=== PATIENT | male | born 1950 | race Caucasian/White ===

== ENCOUNTER → 2023-12-24 09:00 | Outpatient (REF) | payer OTHER, SELFPAY ==
--- NOTE | 2023-12-08 11:15 | CM ---
Patient is scheduled for an elective L TKR on 11/16/23- he is a same day patient. Spoke with patient and prior to surgery. Introduced role of Orthopedic Navigator. Patient reports that he lives with his in a spilt level home. There are five
(3-2) steps to enter and then either six up or six down. He currently functions independently. He has a raised toilet seat and cpap. He has never had VN services. PCP is Shawn Dyson.
Discussed orthopedic program and post surgical plans. Reviewed that he will have VN services initially (medicare.gov website and ratings reviewed) and will then start outpatient PT. Patient selects [facility]N (face sheet faxed to [facility]N to facilitate
confirmation of benefits) for his home care needs and will go to [facility] for outpatient PT.
Patient is in agreement with plan and states that his will be home with him.
Patient will complete online education.
Plan: Orthopedic Navigator will remain available to assist with the care of patient and will reassess discharge needs after surgery.
[2023-12-24 09:20] VITALS: BMI 35.4
[2023-12-24 10:20] LABS: Hematocrit 33.4 % (39.0-52.0); Hemoglobin 10.7 g/dL (13.0-18.0); Mean Corpuscular Hgb 30.1 pg (27.0-31.0); Mean Corpuscular Volume 94.1 fL (80.0-94.0); Mean Platelet Volume 9.9 fL (7.4-10.4); Platelet Count 314 10^3/uL (130-400); Red Blood Cell Count 3.55 10^6/uL (4.70-6.10); Red Cell Dist. Width 12.9 % (11.5-14.5); White Blood Cell Count 5.5 10^3/uL (4.8-10.8)
[2023-12-24 10:59] LABS: ALT (SGPT) 19 U/L (0-50); AST (SGOT) 20 U/L (17-59); Albumin 4.1 g/dl (3.5-5.0); Alkaline Phosphatase 84 U/L (38-126); Blood Urea Nitrogen 22 mg/dl (9-20); Calcium 9.3 mg/dl (8.4-10.2); Carbon Dioxide 24 mmol/L (22-30); Chloride 103 mmol/L (98-107); Estimated Creatinine Clearance 90 ml/min; Glucose 87 mg/dl (70-99); Potassium 4.9 mmol/L (3.5-5.1); Sodium 137 mmol/L (135-145); Total Bilirubin 0.5 mg/dl (0.2-1.3); Total Protein 6.9 g/dl (6.3-8.2); eGFR > 60.00
[2023-12-24 12:31] LABS: Glycohemoglobin (HgbA1c) 5.4 % (4.0-5.6)
[2023-12-24 15:05] VITALS: BMI 35.4
== END ==
LOC: SDSPAT 09:00
PROVIDERS: ATTENDING PHYSICIAN Specialist; FAMILY PHYSICIAN Physician Assistant; OTHER PHYSICIAN Internal Medicine Cardiovascular Disease; OTHER PHYSICIAN Physician Assistant
DX: Z01.818 Encounter for other preprocedural examination (principal); M17.12 Unilateral primary osteoarthritis, left knee
CPT/HCPCS: 36415; 80053; 83036; 85027; 86850; 86900; 86901; 87070

== ENCOUNTER 2024-03-19 15:37 | Emergency (ER) | payer OTHER, SELFPAY ==
[2024-03-19 15:45] VITALS: BP 151/84
--- NOTE | 2024-03-19 17:43 | ED.GENMED ---
History of Present Illness
General
Chief Complaint: Abdominal Symptoms
Source: patient
Exam Limitations: none
Time Seen by Provider: 03/19/24 17:28
Nursing documentation reviewed up to this point in time: agreed with
Travel History
Have you had any contact with someone who has COVID-19?: No
Do you have any symptoms of coronavirus? Fever > 100 degrees, chills, cough, shortness of breath, sore throat, loss of taste or smell, muscle aches, or headache?: No
History of Present Illness
History of Present Illness:
74-year-old male presents with constipation. Last good BM was 9 days ago, had a small one yesterday, feels pressure in rectal area like there is stool there. He took Miralax at 7 a and 11 a, Fleets enema with no success. Has 'a little discomfort'
lower abdomen. Denies black or bloody stools.
History of HTN, Hereditary Hemorrhagic Telangiectasia (HHT), iron deficiency anemia needing occasional iron infusions, having been on p.o. iron off and on, states he had been on iron for a month in February, then told to stop for a week and 10 days ago
had a lower GI camera study at [facility] showing nothing worrisome. Had colonoscopy and upper endoscopy 06/2023, both 'clear.'
Past History
Past History
ED Past Medical History: Arrthythmia, HTN and Other (Current nosebleeds every day from his syndrome); Negative IDDM
ED Past Surgical History: Orthopedic
Social History
Tobacco: Former smoker
Alcohol: Daily (Beer 4-5)
Personal:
Living: with family
Employment: Employed
Family History
Family History: Negative Diabetes, Hypertension or CAD
Review of Systems
Review of Systems
Allergies reviewed?: Yes
All Other Systems: ROS reviewed and negative except as documented in HPI and ROS
Constitutional: Denies fever
Respiratory: Denies trouble breathing
Cardiac: Denies chest pain
ABD/GI: Reports abdominal pain, constipated and bloody stools (small amounts of red blood when wiping and after self administered enema at home); Denies nausea, vomiting or black stools
: Denies dysuria or difficulty voiding
Musculoskeletal: Reports no symptoms
Skin: Reports no symptoms
Neurological: Reports no symptoms
Phy Exam
Physical Exam
Physical Exam:
GENERAL: No acute distress. A&Ox3.
CONSTITUTIONAL: Afebrile.
RESPIRATORY: Regular respirations, nonlabored, lungs clear.
CARDIOVASCULAR: Regular rate and rhythm, no murmurs, no rubs.
GI: Rotund, semi firm, nontender, normal BS
Rectal: Semi firm stool in proximal rectal vault, brown, heme positive.
MUSCULOSKELETAL: Moves with ease. Well perfused.
SKIN: Warm, dry, pink
PSYCH: Normal mood and affect. Well kept, interactive and appropriate
NEUROLOGIC: Awake, alert and oriented. No focal neurological deficits
Course
Orders/Labs/Results
Orders:
Orders
03/19/24 15:47
CR Abdomen - 1 View Urgent
Comment:
Reason For Exam: constipation
03/19/24 17:41
Enema- Treatment ONCE
Type: Tap Water
03/19/24 18:18
Complete Blood Count/With Diff Urgent
Comprehensive Metabolic Panel Urgent
03/19/24 19:45
Enema- Treatment ONCE
Type: Milk of Molasses
Abnormal Lab Results
03/19/24
18:18
RBC 3.45 L 10^6/uL
(4.70-6.10)
Hgb 10.4 L g/dL
(13.0-18.0)
Hct 31.3 L %
(39.0-52.0)
RDW 14.6 H %
(11.5-14.5)
Absolute Neuts (auto) 7.5 H 10^3/uL
(1.4-6.5)
Absolute Lymphs (auto) 1.0 L 10^3/uL
(1.2-3.4)
Absolute Monos (auto) 1.0 H 10^3/uL
(0.1-0.6)
Neutrophils % 78.4 H %
(42.2-75.2)
Lymphocytes % 10.3 L %
(20.5-51.1)
Monocytes % 9.9 H %
(1.7-9.3)
Sodium 133 L mmol/L
(135-145)
Glucose 107 H mg/dl
(70-99)
03/19/24 18:18
03/19/24 18:18
Vital Signs
Initial and Last Documented VS:
Initial Vital Signs
Temp Pulse Resp BP Pulse Ox
98.4 F 73 20 151/84 98
03/19/24 15:45 03/19/24 15:45 03/19/24 15:45 03/19/24 15:45 03/19/24 15:45
Last Documented Vital Signs
Temp Pulse Resp BP Pulse Ox
98.4 F 74 18 142/70 98
03/19/24 15:45 03/19/24 20:40 03/19/24 20:40 03/19/24 20:40 03/19/24 20:40
MDM/Problems Addressed
Differential Diagnosis Includes:
constipation, hemorrhoid, abrasion anal area, fissure
MDM/Problems Addressed:
74-year-old male presents with constipation. Last good BM was 9 days ago, had a small one yesterday, feels pressure in rectal area like there is stool there. He took Miralax at 7 a and 11 a, Fleets enema with no success. Has 'a little discomfort'
lower abdomen. Denies black or bloody stools.
History of HTN, Hereditary Hemorrhagic Telangiectasia (HHT), iron deficiency anemia needing occasional iron infusions, having been on p.o. iron off and on, states he had been on iron for a month in February, then told to stop for a week and 10 days ago
had a lower GI camera study at [facility] showing nothing worrisome. Had colonoscopy and upper endoscopy 06/2023, both 'clear.'
Abdominal x-ray reviews large amount of stool in the rectum. The study is otherwise unremarkable
.
6:30 PM CBC with no clinically significant abnormality. His hemoglobin is 10.4 which is his baseline.
Rectal: deep proximally in rectal vault, stool brown, heme positive most likely from pt states, irritation from self administration of enema at home.
CMP : No clinically significant abnormality
After tapwater enema, very little stool return
8:15 PM
Milk Milk molasses enema given by this examiner
Large stool return, pt feeling much better. Small amount blood perirectally, he states he used a hard plastic enema tip and thinks he scraped the area, it does feel stingy and irritated.
Stable for discharge
*Critical Care Note
Total Time (30-74mins, 75-104mins- exclusive of procedures): Not Applicable
ED Attending Note
-
Portions of this chart may have been created with voice recognition software.� Occasional wrong word or��sound alike� substitutions may have occurred due to the inherent limitations of voice recognition software.
Discharge Plan
Departure
Patient Disposition: Home (Routine Discharge)
Date of Disposition: 03/19/24
Time of Disposition: 20:31
Patient with high blood pressure during this ER visit?: No
Condition: Good
Discharge Problem:
Acute constipation
Instructions: Constipation, Adult (DC)
Prescriptions:
No Action
ferrous sulfate [iron] 325 mg (65 mg iron) Tablet
325 mg PO Q48H
metoprolol succinate 25 MG tablet extended release 24 hr
25 mg PO DAILY
sildenafil 50 mg Tablet
50 mg PO DAILY PRN (Reason: ED)
acetaminophen 500 mg Tablet
1,000 mg PO Q6H PRN (Reason: PAIN)
olmesartan 20 mg Tablet
20 mg PO DAILY
aspirin 81 mg Capsule
81 mg PO DAILY
oxycodone 5 mg tablet
5 - 10 mg PO Q6H PRN (Reason: moderate-severe pain) Qty: 30 0RF
Rx Instructions:
1 tab for moderate pain, 2 if severe.
Dx total joint
ondansetron HCl 4 mg tablet
4 mg PO Q6H PRN (Reason: nausea and vomiting) Qty: 30 0RF
mupirocin 2 % ointment
1 applic intranasal BID Qty: 1 0RF
dexamethasone 4 mg tablet
4 mg PO BID Qty: 7 0RF
Rx Instructions:
Start night of discharge and continue twice a day for 3 days post-surgery.
Take with food.
Referrals:
Shawn Dyson PA-C [Family Provider] - As needed
Activity Restrictions/Additional Instructions:
As we discussed, return here over the weekend for worse bleeding from rectum
Otherwise, see your doctor if the bleeding is not completely gone in 5 days.
Interventions
Interventions:
*Risk Screen - Suicide Last Done: 03/19/24 15:45
*General Assessment Last Done: 03/19/24 15:45
*Neglect/Abuse Screening Last Done: 03/19/24 15:45
ED- Fall Risk Assessment Last Done: 03/19/24 18:09
*ED COVID-19 Vaccine History Last Done: 03/19/24 18:09
*Nursing Disposition Last Done: 03/19/24 20:43
OV-Gnekmw-Gotydjrdjs Assessment Last Done: 03/19/24 18:09
Discharge Date and Time
Discharge Date/Time: 03/19/24 20:43
Print Language: NIGERIAN
[2024-03-19 18:38] LABS: % Basophils 0.4 % (0-2); % Eosinophils 0.7 % (0-6); % Immature Granulocytes 0.3 % (0-0.5); % Lymphocytes 10.3 % (20.5-51.1); % Monocytes 9.9 % (1.7-9.3); % Neutrophils 78.4 % (42.2-75.2); Absolute Eosinophils 0.1 10^3/uL (0-0.7); Absolute Neutrophils 7.5 10^3/uL (1.4-6.5); Hematocrit 31.3 % (39.0-52.0); Hemoglobin 10.4 g/dL (13.0-18.0); Mean Corp Hgb Conc. 33.2 g/dL (33.0-37.0); Mean Corpuscular Hgb 30.1 pg (27.0-31.0); Mean Corpuscular Volume 90.7 fL (80.0-94.0); Mean Platelet Volume 9.2 fL (7.4-10.4); Nucleated Red Blood Cells % 0 % (-); Platelet Count 310 10^3/uL (130-400); Red Blood Cell Count 3.45 10^6/uL (4.70-6.10); Red Cell Dist. Width 14.6 % (11.5-14.5); White Blood Cell Count 9.6 10^3/uL (4.8-10.8)
[2024-03-19 19:41] LABS: ALT (SGPT) 16 U/L (0-50); AST (SGOT) 21 U/L (17-59); Albumin 4.1 g/dl (3.5-5.0); Alkaline Phosphatase 81 U/L (38-126); Blood Urea Nitrogen 18 mg/dl (9-20); Calcium 9.4 mg/dl (8.4-10.2); Carbon Dioxide 22 mmol/L (22-30); Chloride 103 mmol/L (98-107); Glucose 107 mg/dl (70-99); Potassium 4.4 mmol/L (3.5-5.1); Sodium 133 mmol/L (135-145); Total Bilirubin 0.8 mg/dl (0.2-1.3); Total Protein 6.8 g/dl (6.3-8.2); eGFR > 60.00
[2024-03-19 20:40] VITALS: BP 142/70
== END 2024-03-19 20:43 | disposition home or self-care (01) ==
LOC: EMR 15:37
PROVIDERS: Registered Nurse; EMERGENCY PHYSICIAN Emergency Medicine; FAMILY PHYSICIAN Physician Assistant
DX: K59.09 Other constipation (principal); K62.5 Hemorrhage of anus and rectum; R10.30 Lower abdominal pain, unspecified; I10 Essential (primary) hypertension; I48.91 Unspecified atrial fibrillation; G47.30 Sleep apnea, unspecified; M19.90 Unspecified osteoarthritis, unspecified site; D50.9 Iron deficiency anemia, unspecified; I78.0 Hereditary hemorrhagic telangiectasia; Z87.891 Personal history of nicotine dependence; Z79.82 Long term (current) use of aspirin; Z88.5 Allergy status to narcotic agent; Z88.8 Allergy status to other drugs, medicaments and biological substances
CPT/HCPCS: 99283; 74018; 80053; 85025

== ENCOUNTER → 2024-04-27 08:16 | Outpatient (REF) | payer OTHER, SELFPAY | LOC: RAD 08:16 | PROVIDERS: FAMILY PHYSICIAN Family Medicine; OTHER PHYSICIAN Physician Assistant | DX: I78.0 Hereditary hemorrhagic telangiectasia (principal) | CPT/HCPCS: 76700 ==

== ENCOUNTER → 2024-09-22 11:12 | Outpatient (REF) | payer OTHER, SELFPAY | LOC: RAD 11:12 | PROVIDERS: FAMILY PHYSICIAN Family Medicine | DX: I78.0 Hereditary hemorrhagic telangiectasia (principal) | CPT/HCPCS: 71275; Q9967 ==

== ENCOUNTER 2024-10-29 15:15 | Inpatient (IN) | payer OTHER, SELFPAY ==
[2024-10-29] VITALS (12 sets, daily range): BP systolic 93–157; BP diastolic 54–89; BMI 31.8
[2024-10-29 11:39] LABS: % Basophils 0.8 % (0-2); % Eosinophils 1.6 % (0-6); % Immature Granulocytes 0.5 % (0-0.5); % Lymphocytes 14.4 % (20.5-51.1); % Monocytes 10.3 % (1.7-9.3); % Neutrophils 72.4 % (42.2-75.2); Absolute Basophils 0.1 10^3/uL (0-0.2); Absolute Eosinophils 0.1 10^3/uL (0-0.7); Absolute Lymphocytes 0.9 10^3/uL (1.2-3.4); Absolute Monocytes 0.7 10^3/uL (0.1-0.6); Absolute Neutrophils 4.6 10^3/uL (1.4-6.5); Hematocrit 36.2 % (39.0-52.0); Hemoglobin 11.6 g/dL (13.0-18.0); Mean Corpuscular Hgb 29.1 pg (27.0-31.0); Mean Corpuscular Volume 90.7 fL (80.0-94.0); Mean Platelet Volume 9.5 fL (7.4-10.4); Nucleated Red Blood Cells % 0 % (-); Platelet Count 303 10^3/uL (130-400); Red Blood Cell Count 3.99 10^6/uL (4.70-6.10); Red Cell Dist. Width 14.2 % (11.5-14.5); White Blood Cell Count 6.3 10^3/uL (4.8-10.8)
[2024-10-29 11:59] LABS: ALT (SGPT) 18 U/L (0-50); AST (SGOT) 20 U/L (17-59); Albumin 4.6 g/dl (3.5-5.0); Alkaline Phosphatase 63 U/L (38-126); Blood Urea Nitrogen 36 mg/dl (9-20); Calcium 9.8 mg/dl (8.4-10.2); Carbon Dioxide 22 mmol/L (22-30); Chloride 104 mmol/L (98-107); Glucose 93 mg/dl (70-99); Potassium 6.6 mmol/L (3.5-5.1); Sodium 134 mmol/L (135-145); Total Bilirubin 0.5 mg/dl (0.2-1.3); Total Protein 7.5 g/dl (6.3-8.2); eGFR 39.01
--- NOTE | 2024-10-29 12:31 | ED.GENMED ---
History of Present Illness
General
Chief Complaint: Visual Problem
Source: patient and family
Exam Limitations: none
Time Seen by Provider: 10/29/24 12:23
Nursing documentation reviewed up to this point in time: agreed with
History of Present Illness
History of Present Illness:
Patient is a 74-year-old male who presents today for evaluation. 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 He denies any associated chest pain shortness
of breath.
He does report he recently started Ozempic. His first injection was 1 week ago his second injection was yesterday. He does have a history of hypertension A-fib. He had an episode of A-fib October 14 but converted on his own and did not require
cardioversion. He is not on blood thinners. He denies any chest pain shortness of breath. Denies any recent illness fever chills
Past History
Past History
ED Past Medical History: Arrthythmia, HTN and Other (Current nosebleeds every day from his syndrome); Negative IDDM
ED Past Surgical History: Orthopedic
Social History
Tobacco: Former smoker
Alcohol: Daily (Beer 4-5)
Personal:
Living: with family
Employment: Employed
Family History
Family History: Negative Diabetes, Hypertension or CAD
Review of Systems
Review of Systems
Allergies reviewed?: Yes
All Other Systems: ROS reviewed and negative except as documented in HPI and ROS
Constitutional: Reports no symptoms; Denies fever, fatigue or chills
EENT: Reports other (felt mild blurred vision )
Respiratory: Reports no symptoms
Cardiac: Reports no symptoms
ABD/GI: Reports no symptoms
Musculoskeletal: Reports no symptoms
Skin: Reports no symptoms
Neurological: Reports other (felt lightheaded this am )
Psychiatric: Reports no symptoms
Phy Exam
General Physical Exam
General Presentation: no apparent distress
General age: appears stated age
General Skin: warm and dry
General Habitus: normal
General Mental: alert
General Hydration: appears well hydrated
Cardiovascular Exam
Cardiovascular Exam: regular rate/rhythm, no murmur and normal peripheral pulses
Pulmonary Exam
Pulmonary Exam: lungs clear and no respiratory distress
Neurological Exam
Neurological Exam: alert and oriented x3
Musculoskeletal Exam
Musculoskeletal Exam: full ROM
Skin Exam
Skin Exam: normal color and warm/dry
Psychiatric Exam
Psychiatric Exam: normal mood/affect
Course
Orders/Labs/Results
Orders:
Orders
10/29/24 11:19
Electrocardiogram (*1) Urgent
Reason for Study: Chest Pain
EKG- Treatment ONCE
10/29/24 11:30
Complete Blood Count/With Diff Urgent
Comprehensive Metabolic Panel Urgent
10/29/24 12:45
0.9% Sodium Chloride 1000 ml [Nss] 1,000 ml IV BOLUS
Calcium Gluconate 1,000 mg IV NOW STA
Dextrose 50%-Water [Dextrose 50% Syringe] 12.5 grams IV [id number] PRN
Dextrose 50%-Water [Dextrose 50% Syringe] 25 grams IV NOW STA
Insulin Human Regular [Novolin R] 5 units IV NOW STA
Sodium Zirconium Cyclosilicate [Lokelma] 10 gram PO NOW STA
10/29/24 12:46
Bedside Glucose PRE IV Insulin- HyperK+ NOW
10/29/24 14:16
Bedside Glucose POST IV Insulin- HyperK+ Q1HX2,Q2HX2
10/29/24 15:16
Potassium Urgent
Comment: draw 2 hours after regular insulin IV administration
Abnormal Lab Results
10/29/24
11:30
RBC 3.99 L 10^6/uL
(4.70-6.10)
Hgb 11.6 L g/dL
(13.0-18.0)
Hct 36.2 L %
(39.0-52.0)
MCHC 32.0 L g/dL
(33.0-37.0)
Absolute Lymphs (auto) 0.9 L 10^3/uL
(1.2-3.4)
Absolute Monos (auto) 0.7 H 10^3/uL
(0.1-0.6)
Lymphocytes % 14.4 L %
(20.5-51.1)
Monocytes % 10.3 H %
(1.7-9.3)
Sodium 134 L mmol/L
(135-145)
Potassium 6.6 H* mmol/L
(3.5-5.1)
BUN 36 H mg/dl
(9-20)
Creatinine 1.8 H mg/dL
(0.7-1.3)
10/29/24 11:30
Vital Signs
Initial and Last Documented VS:
Initial Vital Signs
Temp Pulse Resp BP Pulse Ox
97.8 F 90 18 93/54 100
10/29/24 11:10 10/29/24 11:10 10/29/24 11:10 10/29/24 11:10 10/29/24 11:10
Last Documented Vital Signs
Temp Pulse Resp BP Pulse Ox
97.3 F 67 12 115/63 99
10/29/24 11:15 10/29/24 12:27 10/29/24 12:27 10/29/24 12:27 10/29/24 11:15
Communications Controller consulted with Physician
Communications Controller consulted with physician?: Yes
Name of Physician Consulted: tessa
MDM/Problems Addressed
MDM/Problems Addressed:
Patient is a 74-year-old male who was working and felt very lightheaded developed some blurred vision and presented to the ER. Patient starting Ozempic 1 week ago his last dose was yesterday which was a second dose. He presented to the ER awake
alert no acute distress however labs are not normal. Patient has no prior history of renal disease however his BUN was elevated at 36 with a creatinine of 1.8 his potassium was elevated 6.6 with mild peaked T waves. discussed with Dr Jules
hyperkalemic meds ordered w/ nss.
will adm to hospitalist service.
*Pulse Oximetry
Patient hypoxic: no
*EKG
Interpreted by ED Provider?: Yes
Heart Rate: 72
Rate: normal
Rhythm: sinus
Ischemia: no ischemia
*Critical Care Note
Total Time (30-74mins, 75-104mins- exclusive of procedures): Not Applicable
ED Attending Note
-
Portions of this chart may have been created with voice recognition software.� Occasional wrong word or��sound alike� substitutions may have occurred due to the inherent limitations of voice recognition software.
Discharge Plan
Departure
Patient Disposition: Admit
Date of Disposition: 10/29/24
Time of Disposition: 14:00
Admit to: Telemetry
Admit to doctor: hospitalist
Presentation/result/management discussed w/ accepting MD/DO: Hospitalist
Patient with high blood pressure during this ER visit?: No
Condition: Fair
Covid-19: Not Applicable
Discharge Problem:
Acute hyperkalemia, Acute renal insufficiency
Prescriptions:
No Action
ferrous sulfate [iron] 325 mg (65 mg iron) Tablet
325 mg PO DAILY
metoprolol succinate 25 MG tablet extended release 24 hr
25 mg PO DAILY
acetaminophen 500 mg Tablet
1,000 mg PO Q6HPRN PRN (Reason: MILD PAIN)
olmesartan 20 mg Tablet
20 mg PO DAILY
Ozempic 0.25 mg or 0.5 mg (2 mg/3 mL) Pen Injector
0.25 mg SC TH
Rx Instructions:
for 4 weeks
aspirin 81 mg Tablet,Delayed Release (Dr/Ec)
81 mg PO DAILY
Referrals:
Meme Mcleod MD, Resident [Family Provider] -
Interventions
Interventions:
*Risk Screen - Suicide Last Done: 10/29/24 11:15
*General Assessment Last Done: 10/29/24 12:32
*Neglect/Abuse Screening Last Done: 10/29/24 11:15
ED- Neurological Assessment Last Done: 10/29/24 12:34
ED-EENT Assessment Last Done: 10/29/24 14:05
Discharge Date and Time
Print Language: CROATIAN
[2024-10-29] MEDS: LOKELMA 10 GRAM PO ×2 (13:30→17:35)
[2024-10-29] MEDS: CALCIUM GLUCONATE 1000 MG IV (13:32)
[2024-10-29] MEDS: DEXTROSE 50% SYRINGE 25 GRAMS IV (13:36)
[2024-10-29] MEDS: NOVOLIN R 5 UNITS IV (13:38)
--- NOTE | 2024-10-29 14:27 | HPS.HSE ---
Family Physician
-
Family Physician: Meme Puri MD, Residen
Chief Complaint
-
lightheadedness
History of Present Illness
Mr. Gerry Rivera is a 74 yo man with hx atrial fibrillation not on blood thinners, essential HTN, recent initiation of Ozempic (first injection 1 week ago and 2nd yesterday) presents to the ER with episode of lightheadedness, blurry vision and
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
Patient states he was standing up for a while then felt very dizzy with blurry vision, he sat down with improvement in symptoms. He did not pass out. He then came to the hospital. He states he has been trying to stay hydrated but per he does
not drink much and did not drink a lot this morning. Over past 2 weeks since starting Ozempic he has lost 15 pounds. He has also changed his diet, eating less salt and noticed decreased LE swelling. Per , he was using a salt substitute which
is high in potassium.
He denies fevers/chills. No chest pain. He has hx chronic nose bleeds. He has hx afib s/p ablation years ago; went into afib earlier this month but self converted out of it and has stopped Eliquis. No abdominal pain. No
nausea/vomiting/diarrhea.
He was drinking alcohol daily up until 2 weeks ago when slowed down and now has only had about 2 drinks/week.
Medical History
Past Medical History
Past Medical History: Reports Arrhythmia (atrial fibrillation ) and HTN
Past Surgical History: Reports Orthopedic
Social History
Tobacco: Non-smoker
Alcohol: Occasional (was daily 2 weeks ago )
Family History
Family History: Not pertinent
Allergies / Home Medications
Allergies reflects when Allergies were last updated in [facility].
Home Medications with original date entered in [facility]
Allergy/Medication List:
Allergies
Allergy/AdvReac Type Severity Reaction Status Date / Time
lorazepam [From Ativan] Allergy confused Verified 10/29/24 11:14
morphine [Morphine] Allergy nausea, Verified 10/29/24 11:14
bowel
incontinence
Home Medications
ferrous sulfate 325 mg (65 mg iron) tablet (iron) 325 mg PO DAILY Supplement 10/18/22
metoprolol succinate 25 mg tablet,extended release 24 hr 25 mg PO DAILY Blood Pressure 10/18/22
acetaminophen 500 mg tablet 1,000 mg PO Q6HPRN PRN MILD PAIN 12/19/23
olmesartan 20 mg tablet 20 mg PO DAILY Blood Pressure 12/19/23
aspirin 81 mg tablet,delayed release 81 mg PO DAILY Blood Clot Prevention/Tx 10/29/24
semaglutide 0.25 mg or 0.5 mg (2 mg/3 mL) subcutaneous pen injector (Ozempic) 0.25 mg SC TH WEIGHT LOSS 10/29/24
Review of Systems
-
History Source: Patient
A 12 point ROS was completed and negative except as noted: Yes
Physical Exam
Vital Signs
Vital Signs
Temp Pulse Resp BP Pulse Ox
97.3 F 67 12 115/63 99
10/29/24 11:15 10/29/24 12:27 10/29/24 12:27 10/29/24 12:27 10/29/24 11:15
Physical Exam
General: No Apparent Distress
HEENT: PERRLA
Respiratory: Clear; No Wheezes
Cardiac: S1/S2 and Regular Rhythm
GI: Soft and Non Tender
Musculoskeletal: No Edema
Skin: Warm and Dry; No Rash
Neuro: AO x 3
Psych: Calm
Laboratory Results
-
10/29/24 11:30
Laboratory Results
Total Bilirubin 0.5 mg/dl (0.2-1.3) 10/29/24 11:30
AST 20 U/L (17-59) 10/29/24 11:30
ALT 18 U/L (0-50) 10/29/24 11:30
Alkaline Phosphatase 63 U/L (38-126) 10/29/24 11:30
Data Reviewed
-
Diagnostic Radiology: Report Reviewed by me
Lab Data: Labs Reviewed by me
Impression/Plan
-
Mr. Gerry Rivera is a 74 yo man with hx atrial fibrillation not on blood thinners, essential HTN, recent initiation of Ozempic (first injection 1 week ago and 2nd yesterday) presents to the ER with episode of lightheadedness, blurry vision and
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
Triage VS: T 97.8, P 90, RR 18, BP 98/54, SpO2 100%
LABS: WBC 6.3, Hg 11.6, PLT 303, Na 134, K+ 6.6, BUN 36, Glucose 93, Cr 1.8, liver enzymes WNL
MAR: NS 1L x 1, insulin 5 units IV x 1 + dextrose, Calcium Gluconate
EKG: NSR @ 72, mildly peaked t waves
Acute Kidney Injury
Hyperkalemia
Near Syncope
-likely 2/2 recent initiation of Ozempic and dehydration
-giving 1L NS in ER, will add additional 500cc
-admit to telemetry
-NS @ 125
-F/U urine studies
-HOLD OZEMPIC - now and at discharge
-hold ELIGIBILITY COUNSELOR Losartan
-repeat K now and BMP at 8PM
-renal US
-if renal function doesn't improve with fluids would need to consult Nephrology
-low K diet
Hypoglycemia
-s/p IV insulin given int he ER - receiving IV dextrose
Hx Afib
-ELIGIBILITY COUNSELOR Metoprolol
-not on Eliquis with hx nose bleeds
Essential HTN
-hold ELIGIBILITY COUNSELOR ARB
DVT PPx SCD
FULL CODE
76 MINUTES spent on patient care
[2024-10-29 14:41] LABS: Glucose - Point of Care 68 mg/dl (70-99)
[2024-10-29] MEDS: DEXTROSE 50% SYRINGE 12.5 GRAMS IV (14:45)
[2024-10-29] MEDS: NSS 1000 IV ×2 (14:51→17:34)
[2024-10-29 15:46] LABS: Glucose - Point of Care 80 mg/dl (70-99)
[2024-10-29 15:51] LABS: Potassium 5.2 mmol/L (3.5-5.1)
[2024-10-29] MEDS: NSS 500 IV (16:00)
[2024-10-29 17:36] LABS: Glucose - Point of Care 87 mg/dl (70-99)
--- NOTE | 2024-10-29 18:05 | PTCARENOTE ---
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 tiger texted Dr. Dillon.
[2024-10-29 18:24] LABS: Urine Sodium 24 mmol/L (30-90)
[2024-10-29 19:40] LABS: Glucose - Point of Care 137 mg/dl (70-99)
[2024-10-29] MEDS: THIAMINE INJECTION 200 MG IV (20:12)
[2024-10-29 20:41] LABS: Blood Urea Nitrogen 32 mg/dl (9-20); Calcium 9.2 mg/dl (8.4-10.2); Carbon Dioxide 17 mmol/L (22-30); Chloride 103 mmol/L (98-107); Estimated Creatinine Clearance 61 ml/min; Glucose 126 mg/dl (70-99); Potassium 4.4 mmol/L (3.5-5.1); Sodium 131 mmol/L (135-145); eGFR 57.65
--- NOTE | 2024-10-29 21:00 | PTCARENOTE ---
Hernando texted with Dr. Dillon, decreased IV fluids to 80 ml/hr, pt. drank 32 oz water and sent down to U/S for renal/bladder in wheelchair.
[2024-10-29 22:13] LABS: Glucose - Point of Care 94 mg/dl (70-99)
[2024-10-30 03:00] VITALS: BP 135/64
[2024-10-30] MEDS: NSS 1000 IV ×2 (03:31→20:46)
[2024-10-30] MEDS: LOKELMA 10 GRAM PO ×2 (05:07→15:31)
[2024-10-30 07:01] LABS: % Basophils 0.9 % (0-2); % Eosinophils 3.1 % (0-6); % Immature Granulocytes 0.2 % (0-0.5); % Lymphocytes 24.1 % (20.5-51.1); % Monocytes 11.2 % (1.7-9.3); % Neutrophils 60.5 % (42.2-75.2); Absolute Eosinophils 0.1 10^3/uL (0-0.7); Absolute Lymphocytes 1.1 10^3/uL (1.2-3.4); Absolute Monocytes 0.5 10^3/uL (0.1-0.6); Absolute Neutrophils 2.8 10^3/uL (1.4-6.5); Hematocrit 32.8 % (39.0-52.0); Hemoglobin 10.2 g/dL (13.0-18.0); Mean Corp Hgb Conc. 31.1 g/dL (33.0-37.0); Mean Corpuscular Hgb 28.3 pg (27.0-31.0); Mean Corpuscular Volume 90.9 fL (80.0-94.0); Mean Platelet Volume 9.8 fL (7.4-10.4); Nucleated Red Blood Cells % 0 % (-); Platelet Count 249 10^3/uL (130-400); Red Blood Cell Count 3.61 10^6/uL (4.70-6.10); Red Cell Dist. Width 14.1 % (11.5-14.5); White Blood Cell Count 4.6 10^3/uL (4.8-10.8)
[2024-10-30 07:20] LABS: Blood Urea Nitrogen 22 mg/dl (9-20); Carbon Dioxide 21 mmol/L (22-30); Chloride 107 mmol/L (98-107); Estimated Creatinine Clearance 72 ml/min; Glucose 107 mg/dl (70-99); Magnesium 2.1 mg/dl (1.6-2.3); Sodium 137 mmol/L (135-145); eGFR > 60.00
[2024-10-30 07:27] LABS: Potassium 5.3 mmol/L (3.5-5.1)
[2024-10-30 07:40] VITALS: BP 141/69
[2024-10-30] MEDS: FOLVITE 1 MG PO (08:37)
[2024-10-30] MEDS: ASPIR LOW (ENTERIC COATED) 81 MG PO (08:37)
[2024-10-30] MEDS: THIAMINE INJECTION 200 MG IV ×2 (08:38→20:44)
[2024-10-30] MEDS: TOPROL XL 25 MG PO (08:38)
--- NOTE | 2024-10-30 10:27 | W.PN.HOSP.TC ---
Today's Communication/Plan
-
DC
Assessment / Plan
Assessment / Plan
Mr. Gerry Rivera is a 74 yo man with hx atrial fibrillation not on blood thinners, essential HTN, recent initiation of Ozempic (first injection 1 week ago and 2nd yesterday) presents to the ER with episode of lightheadedness, blurry vision and
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
EKG: NSR @ 72, mildly peaked t waves
Acute Kidney Injury
Hyperkalemia
Near Syncope
-likely 2/2 recent initiation of Ozempic . Ozempic has a side effect of DWAIN which is a non-dependent reaction. Patient without any GI symptoms with both the injections. No nausea, vomiting, diarrhea or extrarenal losses. I doubt there is
dehydration element or prerenal element contributing to DWAIN. I advised the patient with his current reaction of Ozempic and DWAIN to discontinue going forward and consider an alternative. Concurrent admission of olmesartan might have contributed to
DWAIN.
-renal US without obstructive uropathy
-Resolved DWAIN-creatinine down to 1.1.
-low K diet
Hyperkalemia-suspect secondary to use of olmesartan, hypotension resolved and DWAIN. Improved with the treatment. Repeat this afternoon. Hold on ARB.
Hypoglycemia
-s/p IV insulin given int he ER - receiving IV dextrose
-Resolved
Hx Afib
-APARTMENT LEASING SPECIALIST Metoprolol
-not on Eliquis with hx nose bleeds
-On sinus rhythm
Essential HTN
-hold APARTMENT LEASING SPECIALIST ARB
-Patient had been using ARB for 2 years without issues. Once hyperkalemia resolves we discussed about going back on that if needed for blood pressure and then follow-up BMP as an outpatient once he restarts that.
DVT PPx SCD
FULL CODE
Repeat BMP this afternoon and if potassium is okay we will discharge patient home
Anticipated Discharge: Today
Subjective/Interval History
-
Date of Service: October 30, 2024
Patient states all his symptoms are resolved. He had a symptom of lightheadedness, blurry vision and almost passing out episode.
He is up and about to the bathroom without any symptoms of dizziness or lightheadedness.
Voicing no specific complaints.
He says he went on Ozempic for weight loss. He had first dose a week ago and he did okay without any GI symptoms. He had a second injection yesterday and again no GI symptoms. Over the last several months he was using a salt substitute with a
hypertension. He has been on olmesartan for 2 years without any issues. No prior history of hyperkalemia.
Denies any nausea vomiting diarrhea or excessive urination. No prior history of kidney disease. Denies any retentive urinary symptoms or dysuria or frequency.
In the beginning of October he had a breakthrough A-fib and there was a plan of cardioversion but he reverted to sinus rhythm so that was canceled. In preparation of cardioversion he was on Eliquis that was discontinued apparently by cardiology.
His prior history of ablation for A-fib. He is in sinus rhythm.
Objective Data
-
Labs:
Laboratory Results
10/30/24
06:39
WBC 4.6 L
Hgb 10.2 L
Hct 32.8 L
Plt Count 249
Sodium 137
Potassium 5.3 H
Chloride 107
Carbon Dioxide 21 L
BUN 22 H
Creatinine 1.1
Glucose 107 H
Calcium 9.0
Vital Signs:
Vital Signs
Temp Pulse Resp BP Pulse Ox
98.2 F 72 16 141/69 99
10/30/24 07:40 10/30/24 07:40 10/30/24 07:40 10/30/24 07:40 10/30/24 07:40
I&O
10/29/24 10/30/24 10/31/24
06:59 06:59 06:59
Intake Total 1520 / 1520
Balance 1519
Review of Systems
-
Constitutional: Denies Fever or Chills
EENT: Denies Sore Throat
Respiratory: Denies Cough or Trouble Breathing
Cardiac: Denies Chest Pain or Palpitations
Abdomen/GI: Denies Abdominal Pain, Nausea, Vomiting or Diarrhea
Neuro: Denies Dizzy
Physical Exam
-
General: Comfortable
Respiratory: Clear to Auscultation and Non Labored Respirations; Negative Accessory Resp Muscle Use
Cardiac: Regular Rhythm and S1/S2
GI: Soft
Neuro: AO x 3
Psych: Calm; Negative Confused
Data Reviewed
-
Labs: Labs Reviewed by me
[2024-10-30 11:50] VITALS: BP 127/71
--- NOTE | 2024-10-30 14:08 | CM ---
Patient seen bedside with and grandchildren, initial assessment completed. Patient resides in a split level home, denies use of DME, VN, or SNF. Patient confirms PCP Trice Puri, pharmacy [facility], confirms prescription coverage.
Consult placed for alcohol withdrawal, and grandchildren stepped outside to discuss consult. Patient declining services for [facility]. Patient hopeful for discharge today. CM will continue to follow for all discharge planning needs.
Plan; home with , no needs.
[2024-10-30 14:34] LABS: Blood Urea Nitrogen 18 mg/dl (9-20); Calcium 8.9 mg/dl (8.4-10.2); Carbon Dioxide 25 mmol/L (22-30); Chloride 104 mmol/L (98-107); Estimated Creatinine Clearance 79 ml/min; Glucose 86 mg/dl (70-99); Potassium 5.6 mmol/L (3.5-5.1); Sodium 136 mmol/L (135-145); eGFR > 60.00
[2024-10-30 15:42] VITALS: BP 141/80
[2024-10-30 19:33] VITALS: BP 131/75
[2024-10-30] MEDS: SENOKOT-S 1 TABLET PO (23:19)
[2024-10-30 23:53] VITALS: BP 130/72
[2024-10-31 03:50] VITALS: BP 133/77
[2024-10-31 07:20] VITALS: BP 144/79
[2024-10-31] MEDS: TOPROL XL 25 MG PO (08:16)
[2024-10-31] MEDS: ASPIR LOW (ENTERIC COATED) 81 MG PO (08:17)
[2024-10-31] MEDS: FOLVITE 1 MG PO (08:17)
[2024-10-31] MEDS: THIAMINE INJECTION 200 MG IV (08:18)
--- NOTE | 2024-10-31 08:34 | W.PN.HOSP.TC ---
Addendum entered and electronically signed by Jared Basurto MD 11/06/24 16:47:
Afib - paroxysmal
Original Note:
Today's Communication/Plan
-
DC
Assessment / Plan
Assessment / Plan
Mr. Gerry Rivera is a 74 yo man with hx atrial fibrillation not on blood thinners, essential HTN, recent initiation of Ozempic (first injection 1 week ago and 2nd yesterday) presents to the ER with episode of lightheadedness, blurry vision and
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
EKG: NSR @ 72, mildly peaked t waves
Acute Kidney Injury
Hyperkalemia
Near Syncope
-likely 2/2 recent initiation of Ozempic . Ozempic has a side effect of DWAIN which is a non dose dependent reaction. Patient without any GI symptoms with both the injections. No nausea, vomiting, diarrhea or extrarenal losses. I doubt there is
dehydration element or prerenal element contributing to DWAIN. I advised the patient with his current reaction of Ozempic and DWAIN to discontinue going forward and consider an alternative. Concurrent admission of olmesartan might have contributed to
DWAIN.
-renal US without obstructive uropathy
-Resolved DWAIN-creatinine down to 1.1.
-low K diet
Hyperkalemia-suspect secondary to use of olmesartan, hypotension resolved and DWAIN. Improved with the treatment. Needed repeat dosing of Lokelma. Advised to hold ARB going forward as no compelling indication for its use in regards to hypertension
treatment in his case. Advised to go up on the dose of metoprolol for hypertension management.
Hx Afib
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
-not on Eliquis with hx nose bleeds
-On sinus rhythm
Essential HTN
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
-Patient had been using ARB for 2 years without issues. Increase BB as needed for BP management
DVT PPx SCD
FULL CODE
DC home today if K is ok
More than 30 minutes spent in discharge including
Final examination of the patient
Summarizing hospital stay
Instructions for continuing care to all relevant caregivers
Preparation of discharge records, prescriptions, and referral forms
Total time spent (in minutes): 32
Anticipated Discharge: Today
Subjective/Interval History
-
Date of Service: October 31, 2024
Patient today asymptomatic and back to his self.
Denies any dizziness, lightheadedness, blurry vision or headache today.
Objective Data
-
Labs:
Laboratory Results
10/31/24
07:29
Sodium Pending
Potassium Pending
Chloride Pending
Carbon Dioxide Pending
BUN Pending
Creatinine Pending
Glucose Pending
Calcium Pending
Vital Signs:
Vital Signs
Temp Pulse Resp BP Pulse Ox
97.8 F 74 16 144/79 99
10/31/24 07:20 10/31/24 07:20 10/31/24 07:20 10/31/24 07:20 10/31/24 07:20
I&O
10/30/24 10/31/24 11/01/24
06:59 06:59 06:59
Intake Total 1520 / 1520 2580 / 2580
Balance 1520 / 1520 2580 / 2580
Review of Systems
-
Respiratory: Denies Trouble Breathing
Cardiac: Denies Chest Pain
Abdomen/GI: Denies Abdominal Pain, Nausea, Vomiting or Diarrhea
Neuro: Denies Dizzy or Headache
Physical Exam
-
General: Comfortable
Respiratory: Non Labored Respirations; Negative Accessory Resp Muscle Use
Cardiac: Regular Rhythm and S1/S2; Negative Tachycardic
GI: Soft
Neuro: AO x 3
Psych: Calm; Negative Confused or Agitated
Data Reviewed
-
Labs: Labs Reviewed by me (pending)
[2024-10-31 08:58] LABS: Blood Urea Nitrogen 19 mg/dl (9-20); Calcium 9.4 mg/dl (8.4-10.2); Carbon Dioxide 23 mmol/L (22-30); Chloride 105 mmol/L (98-107); Estimated Creatinine Clearance 79 ml/min; Glucose 93 mg/dl (70-99); Sodium 136 mmol/L (135-145); eGFR > 60.00
[2024-10-31 09:03] LABS: Potassium 5.5 mmol/L (3.5-5.1)
[2024-10-31] MEDS: COLACE 100 MG PO (09:49)
[2024-10-31] MEDS: MIRALAX 17 GRAMS PO (09:49)
[2024-10-31] MEDS: LOKELMA 10 GRAM PO ×2 (09:52→13:13)
[2024-10-31 11:25] VITALS: BP 149/79
[2024-10-31 15:28] LABS: Blood Urea Nitrogen 14 mg/dl (9-20); Calcium 9.1 mg/dl (8.4-10.2); Carbon Dioxide 22 mmol/L (22-30); Chloride 103 mmol/L (98-107); Estimated Creatinine Clearance 88 ml/min; Glucose 131 mg/dl (70-99); Potassium 4.7 mmol/L (3.5-5.1); Sodium 136 mmol/L (135-145); eGFR > 60.00
[2024-10-31 15:37] VITALS: BP 143/69
--- NOTE | 2024-11-01 13:55 | PN.CDI ---
CDI
- -
CDI:
Physician Documentation Request
Admit Date: 10/29/24 15:15
Dear Doctor Sb,
Please review the following and provide your response in the progress notes.
Clinical Indicators:
- 10/31 PN indicates atrial fibrillation without specificity
- Prior ER visit Oct 2020 'new onset afib'
- 10/29 ER Physician 'episode of A-fib October 14 but converted on his own'
- 10/29 H&P 'hx afib s/p ablation years ago'
- 10/29 EKG NSR
If possible, please provide further specificity regarding atrial fibrillation, such as:
Paroxysmal atrial fibrillation - terminates spontaneously or with intervention within 7 days of onset
Persistent atrial fibrillation - episodes of continuous AF that last more than 7 days and do not self-terminate
Permanent atrial fibrillation - when a decision has been made to accept the presence of AF and there is no further attempt to restore or maintain sinus rhythm
Other - please specify
Use of terms such as suspected, likely, concern for, or probable (associated with a specific diagnosis that is being evaluated, monitored, or treated as if it exists) are acceptable and can be coded in the inpatient setting, when documented at the
time of discharge.
Thank you,
Carmen Ferguson RN
CDI Specialist
Please use your independent medical judgment in providing your response.
== END 2024-10-31 16:32 | disposition home or self-care (01) | DRG 684 ==
LOC: 4 WEST ACU 15:15
PROVIDERS: Nurse Practitioner; ADMITTING PHYSICIAN Student in an Organized Health Care Education/Training Program; ATTENDING PHYSICIAN Internal Medicine; EMERGENCY PHYSICIAN Student in an Organized Health Care Education/Training Program; FAMILY PHYSICIAN Student in an Organized Health Care Education/Training Program
DX: N17.9 Acute kidney failure, unspecified (principal); H53.8 Other visual disturbances; I10 Essential (primary) hypertension; R42 Dizziness and giddiness; I48.0 Paroxysmal atrial fibrillation; E16.2 Hypoglycemia, unspecified; R55 Syncope and collapse; E87.5 Hyperkalemia; N28.9 Disorder of kidney and ureter, unspecified; T38.3X5A Adverse effect of insulin and oral hypoglycemic [antidiabetic] drugs, initial encounter; Y92.9 Unspecified place or not applicable; Z79.82 Long term (current) use of aspirin; Z79.85 Long-term (current) use of injectable non-insulin antidiabetic drugs; Z87.891 Personal history of nicotine dependence; Z88.5 Allergy status to narcotic agent; Z88.8 Allergy status to other drugs, medicaments and biological substances
CPT/HCPCS: 76770; 80048; 80053; 82570; 82962; 83735; 84132; 84300; 85025; 93005; 96361; 96374; 96375; 99285; 99406

== ENCOUNTER → 2025-02-02 09:39 | Outpatient (REF) | payer OTHER, SELFPAY ==
[2025-02-02 11:55] LABS: % Basophils 0.8 % (0-2); % Eosinophils 3.5 % (0-6); % Immature Granulocytes 0.5 % (0-0.5); % Lymphocytes 26.6 % (20.5-51.1); % Monocytes 9.8 % (1.7-9.3); % Neutrophils 58.8 % (42.2-75.2); Absolute Eosinophils 0.1 10^3/uL (0-0.7); Absolute Lymphocytes 1.1 10^3/uL (1.2-3.4); Absolute Monocytes 0.4 10^3/uL (0.1-0.6); Absolute Neutrophils 2.3 10^3/uL (1.4-6.5); Hematocrit 36.2 % (39.0-52.0); Hemoglobin 11.2 g/dL (13.0-18.0); Mean Corp Hgb Conc. 30.9 g/dL (33.0-37.0); Mean Corpuscular Hgb 28.6 pg (27.0-31.0); Mean Corpuscular Volume 92.6 fL (80.0-94.0); Mean Platelet Volume 9.7 fL (7.4-10.4); Nucleated Red Blood Cells % 0 % (-); Platelet Count 261 10^3/uL (130-400); Red Blood Cell Count 3.91 10^6/uL (4.70-6.10); Red Cell Dist. Width 17.7 % (11.5-14.5)
[2025-02-02 12:09] LABS: Iron 97 ug/dl (49-181)
[2025-02-02 12:18] LABS: Percent Saturation 30 % (20-50); Total Iron Binding Capacity 322 ug/dl (261-462)
[2025-02-02 13:09] LABS: Folate 5.1 ng/ml (2.76-20); Vitamin B12 255 pg/ml (239-931)
== END ==
LOC: HWLAB 09:39
PROVIDERS: ATTENDING PHYSICIAN Internal Medicine Hematology & Oncology; FAMILY PHYSICIAN Student in an Organized Health Care Education/Training Program
DX: I78.0 Hereditary hemorrhagic telangiectasia (principal); D50.9 Iron deficiency anemia, unspecified; D51.9 Vitamin B12 deficiency anemia, unspecified
CPT/HCPCS: 36415; 82607; 82728; 82746; 83540; 83550; 85025

== ENCOUNTER 2025-02-07 05:58 | Day surgery (SDC) | payer OTHER, SELFPAY ==
[2025-01-12 11:16] LABS: Hematocrit 33.8 % (39.0-52.0); Hemoglobin 10.3 g/dL (13.0-18.0); Mean Corp Hgb Conc. 30.5 g/dL (33.0-37.0); Mean Corpuscular Hgb 27.8 pg (27.0-31.0); Mean Corpuscular Volume 91.1 fL (80.0-94.0); Platelet Count 343 10^3/uL (130-400); Red Blood Cell Count 3.71 10^6/uL (4.70-6.10); Red Cell Dist. Width 15.4 % (11.5-14.5); White Blood Cell Count 6.1 10^3/uL (4.8-10.8)
[2025-01-12 12:16] LABS: ALT (SGPT) 17 U/L (0-50); AST (SGOT) 19 U/L (17-59); Albumin 4.6 g/dl (3.5-5.0); Alkaline Phosphatase 80 U/L (38-126); Blood Urea Nitrogen 20 mg/dl (9-20); Calcium 9.6 mg/dl (8.4-10.2); Carbon Dioxide 24 mmol/L (22-30); Chloride 104 mmol/L (98-107); Glucose 98 mg/dl (70-99); Potassium 4.9 mmol/L (3.5-5.1); Sodium 140 mmol/L (135-145); Total Bilirubin 0.7 mg/dl (0.2-1.3); Total Protein 7.4 g/dl (6.3-8.2); eGFR > 60.00
[2025-01-12 13:07] LABS: Glycohemoglobin (HgbA1c) 5.3 % (4.0-5.6)
[2025-01-12 16:06] LABS: Iron 336 ug/dl (49-181)
[2025-01-12 16:15] LABS: Percent Saturation 81 % (20-50); Total Iron Binding Capacity 414 ug/dl (261-462)
[2025-01-12 16:59] LABS: Ferritin 12.4 ng/ml (17.9-464.0)
--- NOTE | 2025-01-24 09:54 | VNURNOTE ---
Patient is scheduled for an elective L TKA on - he is a same day patient with Dr Bahena. Spoke with patient prior to surgery. Introduced role of [facility] VN Liaison. Patient reports that he lives with his in a split level home.
There are 5 steps to enter.
There is a powder room on the second level. He currently functions independently. He has a raised toilet seat, cane and rolling walker.
PCP is Dr Meme Puri.
Discussed [facility] joint protocol and post surgical plans.
Reviewed that he will have VN services initially and will then start outpatient PT.
Patient selects [facility]N for his home care needs and will go [facility] on [address] for outpatient PT. Scheduled for 02/10.
Patient is in agreement with plan and states that his will be home with him. Advised to bring RW with him day of surgery. Referral placed in [facility].
Plan: [facility] VN per [facility] joint protocol 02/07 then outpt PT on 02/10
[2025-02-07] VITALS (20 sets, daily range): BP systolic 91–147; BP diastolic 50–70
[2025-02-07] MEDS: TYLENOL 650 MG PO (06:28)
[2025-02-07] MEDS: NORMOSOL-R/PLASMALYTE-A 1000 IV (06:56)
--- NOTE | 2025-02-07 07:07 | W.DS.TRANS ---
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
-
Discharge Instructions:
Discharge Diagnosis/Procedures L TKA 02/07/25
Diet As tolerated
Activity With Walker
Driving Restrictions No driving
Bathing Restrictions OK to Shower
Other Services PT
Instructions:
Stand-Alone Forms: SDS Total Hip and Knee D/C
Changes to Home Medications: Yes
Discharge Medications:
DC Medications w/original date entered in [employer]
ferrous sulfate 325 mg (65 mg iron) tablet (iron) 325 mg PO MOWEFRSA Supplement 10/18/22
dexamethasone 4 mg tablet 4 mg PO BID inflammation #6 tabs 01/12/25
famotidine 20 mg tablet 20 mg PO HS GI prophylaxis #30 tabs 01/12/25
gabapentin 300 mg capsule 300 mg PO HS sleep/pain #10 caps 01/12/25
mupirocin 2 % topical ointment 1 applic topical BID infection prevention #1 tube 01/12/25
ondansetron 4 mg disintegrating tablet 4 mg PO Q6H PRN n/v #20 tabs 01/12/25
oxycodone 5 mg tablet 5 mg PO Q6H PRN 1 tab moderate pain, 2 tabs severe pain #30 tabs 01/12/25
Saccharomyces boulardii 250 mg capsule (Florastor) 250 mg PO BID #1 cap 02/07/25
acetaminophen 500 mg tablet 1,000 mg (2 x 500 mg) PO QID #0 tabs 02/07/25
aspirin 325 mg tablet 325 mg PO DAILY blood clot prevention #1 tab 02/07/25
cefadroxil 500 mg capsule 500 mg PO BID infection prevention #14 caps 02/07/25
docusate sodium 100 mg capsule (Colace) 100 mg PO BID stool softner #1 cap 02/07/25
magnesium hydroxide 400 mg/5 mL oral suspension (Milk of Magnesia) 30 ml PO HS PRN constipation #1 mL 02/07/25
metoprolol succinate 25 mg tablet,extended release 24 hr 25 mg PO DAILY afib #0 tabs 02/07/25
sennosides 8.6 mg tablet (Senokot) 17.2 mg (2 x 8.6 mg) PO BID laxative #2 tabs 02/07/25
Home Medication Changes
dexamethasone 4 mg tablet 4 mg PO BID inflammation #6 tabs 01/12/25
famotidine 20 mg tablet 20 mg PO HS GI prophylaxis #30 tabs 01/12/25
gabapentin 300 mg capsule 300 mg PO HS sleep/pain #10 caps 01/12/25
mupirocin 2 % topical ointment 1 applic topical BID infection prevention #1 tube 01/12/25
ondansetron 4 mg disintegrating tablet 4 mg PO Q6H PRN n/v #20 tabs 01/12/25
oxycodone 5 mg tablet 5 mg PO Q6H PRN 1 tab moderate pain, 2 tabs severe pain #30 tabs 01/12/25
Saccharomyces boulardii 250 mg capsule (Florastor) 250 mg PO BID #1 cap 02/07/25
acetaminophen 500 mg tablet 1,000 mg (2 x 500 mg) PO QID #0 tabs 02/07/25
aspirin 325 mg tablet 325 mg PO DAILY blood clot prevention #1 tab 02/07/25
cefadroxil 500 mg capsule 500 mg PO BID infection prevention #14 caps 02/07/25
docusate sodium 100 mg capsule (Colace) 100 mg PO BID stool softner #1 cap 02/07/25
magnesium hydroxide 400 mg/5 mL oral suspension (Milk of Magnesia) 30 ml PO HS PRN constipation #1 mL 02/07/25
sennosides 8.6 mg tablet (Senokot) 17.2 mg (2 x 8.6 mg) PO BID laxative #2 tabs 02/07/25
Pending Results: No
[2025-02-07] MEDS: ANCEF 5 IV (11:22)
[2025-02-07] MEDS: ROXICODONE 5 MG PO (11:30)
[2025-02-07] MEDS: TYLENOL 1000 MG PO (12:20)
[2025-02-07] MEDS: DECADRON 4 MG IV (13:15)
[2025-02-07] MEDS: ProAmatine 5 MG PO (13:16)
--- NOTE | 2025-02-07 16:46 | PTCARENOTE ---
1630 pt called at home to instruct ok to take the metprolol 25 mg this pm as per his bid normal routine, as per Kirstin ASIF
== END 2025-02-07 15:15 | disposition home or self-care (01) ==
LOC: SDS 05:58
PROVIDERS: ATTENDING PHYSICIAN Specialist; FAMILY PHYSICIAN Student in an Organized Health Care Education/Training Program; OTHER PHYSICIAN Internal Medicine Hematology & Oncology; OTHER PHYSICIAN Physician Assistant Medical; REFERRING PHYSICIAN Internal Medicine Cardiovascular Disease
DX: M17.12 Unilateral primary osteoarthritis, left knee (principal); Z86.2 Personal history of diseases of the blood and blood-forming organs and certain disorders involving the immune mechanism
CPT/HCPCS: 27447; 36415; 73560; 80053; 82728; 83036; 83540; 83550; 85027; 86850; 86900; 86901; 87070; 97162; C1713; C1762; C1776

== ENCOUNTER → 2025-02-14 09:32 | Outpatient (REF) | payer OTHER, SELFPAY | LOC: RAD 09:32 | PROVIDERS: ATTENDING PHYSICIAN Physician Assistant; FAMILY PHYSICIAN Student in an Organized Health Care Education/Training Program | DX: M79.662 Pain in left lower leg (principal); M79.89 Other specified soft tissue disorders | CPT/HCPCS: 93971 ==

== ENCOUNTER → 2025-07-06 08:13 | Outpatient (REF) | payer OTHER, SELFPAY | LOC: RAD 08:13 | PROVIDERS: ATTENDING PHYSICIAN Student in an Organized Health Care Education/Training Program | DX: K42.9 Umbilical hernia without obstruction or gangrene (principal) | CPT/HCPCS: 74177; Q9967 ==

== ENCOUNTER → 2025-08-04 14:02 | Outpatient (REF) | payer OTHER, SELFPAY | LOC: HWRAD 14:02 | PROVIDERS: ATTENDING PHYSICIAN Student in an Organized Health Care Education/Training Program | DX: M51.360 Other intervertebral disc degeneration, lumbar region with discogenic back pain only (principal) | CPT/HCPCS: 72110 ==